=== PATIENT | male | born 1995 ===

== ENCOUNTER 2018-07-02 23:37 | Emergency (ER) | payer OTHER ==
[~2018-07-02] VITALS: Ht 175.3 cm; Wt 77.3 kg
[2018-07-02 23:42] VITALS: TEMP 97.9
[2018-07-03 00:36] LABS: HEMOGLOBIN 15.3 g/dl (13.5-18.0); MEAN CELL VOLUME 86 fl (80.0-100.0); MEAN CORPUSCULAR HEMOGLOBIN 29 pg (27.0-31.0); MEAN CORPUSCULAR HGB CONC 34 g/dl (33.0-37.0); MEAN PLATELET VOLUME 10.9 fl (7.4-10.4); PLATELET COUNT 235 K/mm3 (130-400); RED BLOOD COUNT 5.24 M/mm3 (4.20-5.60); REDCELL DISTRIBUTION WIDTH-CV 11.2 % (11.5-14.5)
[2018-07-03 00:46] LABS: ALBUMIN 4.9 gm/dL (3.5-5.0); BILIRUBIN,TOTAL 1.1 mg/dL (0.0-1.0); CALCIUM 10.1 mg/dL (8.4-10.2); CREATININE, serum 1.09 mg/dL (0.66-1.25); POTASSIUM 3.3 mmol/L (3.4-5.0); TOTAL PROTEIN 8.9 gm/dL (6.4-8.2)
[2018-07-03 00:50] LABS: GASTROCCULT POSITIVE; pH GASTRIC CONTENTS 2
[2018-07-03 01:39] LABS: BAND 5 % (0-10); EOSINOPHIL 1 % (0-4); LYMPHOCYTE 12 % (20.0-51.0); NEUTROPHILS 77 % (42.0-75.2); PLATELET ESTIMATE NORMAL (NORMAL)
[2018-07-03 02:19] LABS: COLLECTION METHOD CLEAN CATCH
[2018-07-03 02:26] LABS: MUCOUS Present /lpf; PH 9 (5-8); SQUAMOUS EPITHELIAL None Seen /hpf; URINE APPEARANCE Clear; URINE BACTERIA None Seen /hpf; URINE BILIRUBIN Negative (NEGATIVE); URINE BLOOD Negative (NEGATIVE); URINE COLOR Yellow; URINE GLUCOSE 1+ (NEGATIVE); URINE KETONE 2+ (NEGATIVE); URINE LEUKOCYTE ESTERASE Negative (NEGATIVE); URINE NITRATE Negative (NEGATIVE); URINE PROTEIN(semi-quant) Negative (NEGATIVE); URINE RBC 0-2 /hpf; URINE UROBILINOGEN Negative (NEGATIVE)
[2018-07-03 04:09] LABS: TRICYCLIC ANTIDEPRESS URINE NEGATIVE
[2018-07-03 06:29] VITALS: BP 126/99; PULSE 78
[2018-07-03] MEDS ORDERED: ZOFRAN ODT4 MG PO (06:35)
== END 2018-07-03 06:59 | disposition home or self-care (01) ==
LOC: COL.ER 23:37
PROVIDERS: Emergency Medicine; Physician Assistant
DX: F10.129 Alcohol abuse with intoxication, unspecified (principal); K92.0 Hematemesis; R10.9 Unspecified abdominal pain; Y90.1 Blood alcohol level of 20-39 mg/100 ml
CPT/HCPCS: J1200; J2405; J2765; J7030; Q9967